=== PATIENT | female | born 1975 | race Caucasian/White ===

== ENCOUNTER 2017-06-12 22:12 | Emergency (ER) | payer MEDICAID ==
[~2017-06-12] VITALS: Ht 170.2 cm; Wt 53.1 kg
[~2017-06-12 22:12] MED LIST: IRON325 M2 PO; MEDROL 4MG. DOSE4 MG PO; ZITHROMAX Z PA250 MG PO
--- NOTE | 2017-06-12 22:44 | Emergency Room Report ---
History of Present Illness Time Seen by 220 Presenting Problem in Triage Pt arrived:Walked Presenting Problem:SOMEONE GRABBED FINGER AND TWISTED IT Onset of symptoms date/time:06/12/1704/21/2130 or onset unknown for: Treatment Prior to Arrival: SKEIN BANDER Provided by: Sepsis Risk Assessment: Temp: 97.8 B/P: 125/87 MAP: 99 Pulse: 81 Resp: 18 Recent fever? N Clinical Suspician of Infection? N Mental Status: 1 - Regular (Normal Baseline) Sepsis Risk:Low Sepsis Risk Have you (or family members/close friends) recently traveled outside the [place]? N If Yes, where/when: Have you had exposure to infectious disease within the past month? N TB? Other? Specify: Source patient, RN notes reviewed, family, old records Exam Limitations no limitations Comment acute injury lt fifth finger with twist injury Cardiac Chest Pain Chest pain indicative of cardiac No Timing/Duration this evening Severity moderate ALLERGIES Coded Allergies: No Known Allergies (01/30/17) Home Medications Active Scripts Methylprednisolone (Medrol Dose Marsha) 4 MG PO UD #1 MARSHA Prov: 01/30/17 Azithromycin (Zithromycin (Z-MARSHA) 250MG Tab) 250 MG PO DAILY #6 TAB Prov: 01/30/17 Reported Medications Ferrous Sulfate (IRON) 325 MG PO BID History Medical History General CAD? No Angina: No MT: No Hypertension? No Hyperlipidemia? No CHF? No DVT? No PE? No COPD? No Asthma? No Anemia? Yes GERD? No Gastric ulcers? No GI Bleed? No Hernia? No Thyroid Problems? No Hypothyroidism? No CVA? No Seizures? No Diabetes? No Renal Insuffiency? No End Stage Renal Disease? No UTI? No Stones? No BPH? No GB Disease: No Nephritic Syndrome? No Asplenia? No Hepatitis? No Sickle Cell Disease? No Arthritis? No Migraines? No Cataracts? No Glaucoma? No MRSA? No HIV? No TB? No Anxiety? No Depression? No Cancer? 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 Respiratory denies cough, denies shortness of breath, denies wheezing Cardiovascular denies chest pain, denies syncope Gastrointestinal denies abdominal pain, denies diarrhea, denies vomiting Genitourinary denies: dysuria, frequency, hesitancy, hematuria. Musculoskeletal see HPI, denies back pain, joint pain, joint swelling, denies neck pain Skin denies rash Psychiatric/Neurological denies headache, denies seizure Physical Exam Vital Signs Vital Signs Date Time Temp Pulse Resp B/P Pulse O2 O2 Flow FiO2 Ox Delivery Rate 06/122 97.8 81 18 125/87 98 - WBC >12,000 or <4,000 or 10% bands? 2 or more SIRS Criteria Met? B/P:125/87 MAP:99 Creatinine >2.0? UA output<0.5ml/kg/hr for 2 hrs? Platelet count >100,000? Lactate >2.0mmol/1? INR >1.2 or PTT > than 60 sec? Evidence of Organ Dysfunction? Provider documented clinical suspician of infection? N Sepsis Criteria Count: 0 Sepsis Risk: Low Sepsis Risk General Appearance no apparent distress Eye Exam - bilateral eye PERRL, bilateral eye EOMI Ear, Nose, Throat normal ENT inspection Neck supple Respiratory Status No: respiratory distress. Cardiovascular regular rate/rhythm Peripheral Pulses Pulses normal Yes Extremities swelling, tender pip jt lt fifth finger with sts and dec rom with cap refill ok Strength 4 Upper Ext (L), 4 Upper Ext (R), 4 Lower Ext (L), 4 Lower Ext (R) Neurologic alert, cotton agent II-XII nml as tested, no motor/sensory deficits Reflexes Reflexes normal No Mental status normal mood/affect Skin intact Medical Decision Making LABS/Meds/Orders Pt receiving controlled substance in ED? No Results/Orders Orders Procedure Date/time Status STABILIZE JOINT 06/12 2306 Active HAND-LT-3 VIEWS 06/12 2216 Active XRAY/CT/US XRAY/CT/US XRAY hand XR interpretation by reviewed by me Xray Results abnormal (avulsion fx ) Departure Departure Time of Disposition 2235 Disposition DC Home or Self Care(routine) Clinical Impression Primary Impression: Finger fracture, left Qualifiers: Encounter type: initial encounter Finger: little finger Fracture type: closed Phalanx: middle Fracture alignment: nondisplaced Qualified Code: S62.657A - Nondisplaced fracture of medial phalanx of left little finger, initial encounter for closed fracture Condition STABLE Referrals Quintin Bridges MD Patient Instructions DI for Finger Fracture Additional Instructions ice and wear splint and see ortho for follow up Discharge Counseling Counseled pt/family regarding diagnosis, test results, medications/RX, follow up needs ED Critical Care Critical Care No at [id number]
--- NOTE | 2017-06-12 22:44 | Emergency Room Report ---
History of Present Illness Time Seen by 220 Presenting Problem in Triage Pt arrived:Walked Presenting Problem:SOMEONE GRABBED FINGER AND TWISTED IT Onset of symptoms date/time:06/12/1704/21/2130 or onset unknown for: Treatment Prior to Arrival: [facility] Provided by: Sepsis Risk Assessment: Temp: 97.8 B/P: 125/87 MAP: 99 Pulse: 81 Resp: 18 Recent fever? N Clinical Suspician of Infection? N Mental Status: 1 - Regular (Normal Baseline) Sepsis Risk:Low Sepsis Risk Have you (or family members/close friends) recently traveled outside the [place]? N If Yes, where/when: Have you had exposure to infectious disease within the past month? N TB? Other? Specify: Source patient, RN notes reviewed, family, old records Exam Limitations no limitations Comment acute injury lt fifth finger with twist injury Cardiac Chest Pain Chest pain indicative of cardiac No Timing/Duration this evening Severity moderate ALLERGIES Coded Allergies: No Known Allergies (01/30/17) Home Medications Active Scripts Methylprednisolone (Medrol Dose Marsha) 4 MG PO UD #1 MARSHA Prov: 01/30/17 Azithromycin (Zithromycin (Z-MARSHA) 250MG Tab) 250 MG PO DAILY #6 TAB Prov: 01/30/17 Reported Medications Ferrous Sulfate (IRON) 325 MG PO BID History Medical History General CAD? No Angina: No IN: No Hypertension? No Hyperlipidemia? No CHF? No DVT? No PE? No COPD? No Asthma? No Anemia? Yes GERD? No Gastric ulcers? No GI Bleed? No Hernia? No Thyroid Problems? No Hypothyroidism? No CVA? No Seizures? No Diabetes? No Renal Insuffiency? No End Stage Renal Disease? No UTI? No Stones? No BPH? No GB Disease: No Nephritic Syndrome? No Asplenia? No Hepatitis? No Sickle Cell Disease? No Arthritis? No Migraines? No Cataracts? No Glaucoma? No MRSA? No HIV? No TB? No Anxiety? No Depression? No Cancer? 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 Respiratory denies cough, denies shortness of breath, denies wheezing Cardiovascular denies chest pain, denies syncope Gastrointestinal denies abdominal pain, denies diarrhea, denies vomiting Genitourinary denies: dysuria, frequency, hesitancy, hematuria. Musculoskeletal see HPI, denies back pain, joint pain, joint swelling, denies neck pain Skin denies rash Psychiatric/Neurological denies headache, denies seizure Physical Exam Vital Signs Vital Signs Date Time Temp Pulse Resp B/P Pulse O2 O2 Flow FiO2 Ox Delivery Rate 06/122 97.8 81 18 125/87 98 - WBC >12,000 or <4,000 or 10% bands? 2 or more SIRS Criteria Met? B/P:125/87 MAP:99 Creatinine >2.0? UA output<0.5ml/kg/hr for 2 hrs? Platelet count >100,000? Lactate >2.0mmol/1? INR >1.2 or PTT > than 60 sec? Evidence of Organ Dysfunction? Provider documented clinical suspician of infection? N Sepsis Criteria Count: 0 Sepsis Risk: Low Sepsis Risk General Appearance no apparent distress Eye Exam - bilateral eye PERRL, bilateral eye EOMI Ear, Nose, Throat normal ENT inspection Neck supple Respiratory Status No: respiratory distress. Cardiovascular regular rate/rhythm Peripheral Pulses Pulses normal Yes Extremities swelling, tender pip jt lt fifth finger with sts and dec rom with cap refill ok Strength 4 Upper Ext (L), 4 Upper Ext (R), 4 Lower Ext (L), 4 Lower Ext (R) Neurologic alert, spent grain dryer II-XII nml as tested, no motor/sensory deficits Reflexes Reflexes normal No Mental status normal mood/affect Skin intact Medical Decision Making LABS/Meds/Orders Pt receiving controlled substance in ED? No Results/Orders Orders Procedure Date/time Status STABILIZE JOINT 06/12 2306 Active HAND-LT-3 VIEWS 06/12 2216 Active XRAY/CT/US XRAY/CT/US XRAY hand XR interpretation by reviewed by me Xray Results abnormal (avulsion fx ) Departure Departure Time of Disposition 2235 Disposition DC Home or Self Care(routine) Clinical Impression Primary Impression: Finger fracture, left Qualifiers: Encounter type: initial encounter Finger: little finger Fracture type: closed Phalanx: middle Fracture alignment: nondisplaced Qualified Code: S62.657A - Nondisplaced fracture of medial phalanx of left little finger, initial encounter for closed fracture Condition STABLE Referrals Quintin Bridges MD Patient Instructions DI for Finger Fracture Additional Instructions ice and wear splint and see ortho for follow up Discharge Counseling Counseled pt/family regarding diagnosis, test results, medications/RX, follow up needs ED Critical Care Critical Care No at [id number]
[2017-06-12 22:56] VITALS: BP 125/87
--- NOTE | 2017-06-13 08:30 | RADIOLOGY REPORT PS360 ---
HAND-LT-3 VIEWS HISTORY: Pain following injury hand injury ORDERING PHYSICIAN: Lauren Bowman MD PATIENT AGE: 42 years COMPARISON: None FINDINGS: There is a faint lucency along the ulnar and proximal aspect of the middle phalanx of the fifth digit suspicious for a nondisplaced fracture. There are 2 calcific densities anterior to the PIP joint of the fifth digit and could be due to avulsion injury age indeterminate or small sesamoid bones. There is mild soft tissue swelling at the proximal aspect of the fifth finger. Artifact noted over the proximal phalanx of the thumb representing a ring. No other significant anomalies evident. IMPRESSION: 1. Suspect nondisplaced fracture of the middle phalanx of the fifth finger
--- OUTSIDE RECORDS SUMMARY | 2017-06-17 23:38 | External Medical Summary Rpt | CCD ---
Author Author , POON[facility] Organization [facility] Address Unknown Phone Care Team Providers Care Informatics Manager Name Role Phone [facility], Unavailable Unavailable [facility] LUIS SMITH Unavailable Unavailable JW ESCALERA Unavailable Unavailable IBARRA, IBARRA Unavailable Unavailable MARCIA MARCIA Unavailable Unavailable COPE, COPE Unavailable Unavailable [facility] Unavailable Unavailable INC, [facility], Unavailable Unavailable [facility] Unavailable Unavailable [facility], [facility] [place] Unavailable Unavailable [facility] [place] [place] Unavailable Unavailable 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 L538 OTHER 02-22-2017 [facility] SPECIFIED DERMATOLOGY ERYTHEMATOU S CONDITIONS L578 OTH SKN 02-22-2017 [facility] CHANGES D/T DERMATOLOGY CHRN EXPS TO NONIONIZING RAD L821 OTHER 02-22-2017 [facility] SEBORRHEIC DERMATOLOGY KERATOSIS R208 OTHER 02-22-2017 [facility] DISTURBANCE DERMATOLOGY S OF SKIN SENSATION R58 HEMORRHAGE 02-22-2017 [facility] NOT DERMATOLOGY ELSEWHERE CLASSIFIED J209 ACUTE 01-30-2017 [facility] UNSPECIFIED INC R002 PALPITATION 01-25-2017 [facility] INC R011 CARDIAC 01-25-2017 [facility] UNSPECIFIED INC R609 EDEMA 01-25-2017 [facility] INC D229 MELANOCYTIC 01-20-2017 [facility] UNSPECIFIED INTERNAL MED J069 ACUTE UPPER 01-20-2017 [facility] INFECTION MED UNSPECIFIED L723 SEBACEOUS 01-20-2017 [facility] [place] Z0189 ENCOUNTER 09-02-2016 [facility] 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 5 00 NH Ac IT 76 -2 -2 00 00 L- ti HR 23 8- 3- 0 07 MA ve OM 06 20 20 49 RT YC 00 17 17 03 IN 1 68 PH AR 25 MA 0 CY MG #5 TA 91 BL ET FL 60 05 06 16 30 00 NH Ac UT 43 -1 -1 .0 00 L- ti IC 20 8- 6- 00 07 MA ve 26 20 20 48 RT ON 41 17 17 86 E 5 81 PH CO AR OP MA CY 50 #5 MC 91 G SP RA Y CE 16 05 06 30 30 00 NH Ac TI 57 -1 -1 .0 00 L- ti RI 10 8- 6- 00 08 MA ve ZI 40 20 20 83 RT NE 25 17 17 95 0 15 PH HC AR L MA 10 CY MG #5 91 TA BL ET FL 00 05 05 30 30 00 NH Ac UO 09 -0 -2 .0 00 L- ti XE 37 1- 6- 00 07 MA ve TI 19 20 20 48 RT NE 85 17 17 55 6 23 PH HC AR L MA 40 CY MG #5 91 CA PS UL E BU 00 03 04 4. 3 00 GE Ac CO 05 -2 -2 00 00 OR ti EN 40 4- 8- 0 04 GE ve OR 18 20 20 01 TO PH 91 17 17 77 WN IN 3 16 -N AP AL OT OX HE ON CA RY 8- 2 MG SL BU 00 03 04 17 11 00 GE Ac CO 05 -1 -0 .0 00 OR ti EN 40 3- 7- 00 04 GE ve OR 18 20 20 01 TO PH 91 17 17 73 WN IN 3 86 -N AP AL OT OX HE ON CA RY 8- 2 MG SL FL 65 03 04 30 30 00 GE Ac UO 86 -1 -0 .0 00 OR ti XE 20 3- 7- 00 06 GE ve TI 19 20 20 03 TO NE 30 17 17 90 WN 1 94 HC AP L OT 20 HE CA MG RY CA PS UL E BU 00 03 03 15 10 00 GE Ac CO 05 -0 -3 .0 00 OR ti EN 40 3- 1- 00 04 GE ve OR 18 20 20 01 TO PH 91 17 17 71 WN IN 3 58 -N AP AL OT OX HE ON CA RY 8- 2 MG SL BU 00 02 03 6. 4 00 GE Ac CO 05 -2 -2 00 00 OR ti EN 40 7- 4- 0 04 GE ve OR 18 20 20 01 TO PH 91 17 17 70 WN IN 3 04 -N AP AL OT OX HE ON CA RY 8- 2 MG SL BU 00 02 03 5. 3 00 GE Ac CO 05 -1 -1 00 00 OR ti EN 40 0- 0- 0 04 GE ve OR 18 20 20 01 TO PH 91 17 17 65 WN IN 3 43 -N AP AL OT OX HE ON CA RY 8- 2 MG SL BU 00 01 02 5. 3 00 GE Ac CO 05 -2 -2 00 00 OR ti EN 40 7- 4- 0 04 GE ve OR 18 20 20 01 TO PH 91 17 17 61 WN IN 3 07 -N AP AL OT OX HE ON CA RY 8- 2 MG SL BU 00 01 02 5. 3 00 GE Ac CO 05 -1 -1 00 00 OR ti EN 40 3- 0- 0 04 GE ve OR 18 20 20 01 TO PH 91 17 17 57 WN IN 3 25 -N AP AL OT OX HE ON CA RY 8- 2 MG SL BU 00 01 02 6. 4 00 GE Ac CO 05 -1 -0 00 00 OR ti EN 40 1- 3- 0 04 GE ve OR 18 20 20 01 TO PH 91 17 17 55 WN IN 3 55 -N AP AL OT OX HE ON CA RY 8- 2 MG SL BU 00 12 01 4. 3 00 GE Ac CO 05 -3 -2 00 00 OR ti EN 40 0- 7- 0 04 GE ve OR 18 20 20 01 TO PH 91 16 17 52 WN IN 3 85 -N AP AL OT OX HE ON CA RY 8- 2 MG SL BU 00 12 01 21 14 00 GE Ac CO 05 -1 -1 .0 00 OR ti EN 40 5- 3- 00 04 GE ve OR 18 20 20 01 TO PH 91 16 17 48 WN IN 3 39 -N AP AL OT OX HE ON CA RY 8- 2 MG SL BU 00 12 01 9. 6 00 GE Ac CO 05 -1 -0 00 00 OR ti EN 40 0- 9- 0 04 GE ve OR 18 20 20 01 TO PH 91 16 17 46 WN IN 3 86 -N AP AL OT OX HE ON CA RY 8- 2 MG SL ME 00 12 01 70 7 00 HO Ac TR 78 -0 -0 .0 00 ME ti ON 17 8- 9- 00 06 TO ve ID 07 20 20 07 WN AZ 78 16 17 71 OL 7 60 PH E AR VA MARY GI CY NA L OF 0. 75 CY % NT GL HI AN A NI 68 12 01 10 5 00 HO Ac TR 00 -0 -0 .0 00 ME ti OF 10 8- 9- 00 06 TO ve UR 00 20 20 07 WN AN 10 16 17 71 TO 0 59 PH IN AR MARY MO CY NO -M OF CR CY 10 NT 0 HI MG AN A Procedures Procedure DOS Code Location Performer Comment SHAVING 71553 [facility] SKIN 7 DERMATOLO LESION 1 GY TRUNK/ARM /LEG DIAM 0.5CM/< IMHISTOCH 19424 [facility] JW EM/CYTCHM 7 DERMATOLO 1ST [place] [address] [facility] JW SURG 7 DERMATOLO PATHOLOGY GY GROSS&LUBA ROSCOPIC EXAM ECHO 01802 [facility] R-T 7 [facility] 2D INC INC W/WOM-MOD E COMPL SPEC&COLR D XTRNL ECG 82235 [facility] & 48 HR 7 VALLEY RECORD INTERNAL SCAN STOR MED W/R&I DRUG TEST G0481 [facility] [place], ID INC. INC. METH P DAY 8-14 DRUG CL LIPID 08730 [facility] PANEL 6 [facility] INC INC SCREENING G0202 [place] M[facility]IA 6 MEDICAL MAMMOGRAP IMAGING HY NINFA ASS INCL CAD WHEN PERFORMD COMPREHEN 68276 [facility] SIVE 6 [facility] METABOLIC INC INC PANEL COLLECTIO 02394 [facility] N VENOUS 6 [facility] BLOOD INC INC VENIPUNCT URE COMPUTER- 94301 [place] MARCIA AIDED 6 MEDICAL DETECTION IMAGING ASS SCREENING MAMMOGRAP HY CYTP C/V 36091 [facility], PICKLES[facility] AUTO THIN 6 LLC ER JR LYR PREPJ SCR MNL RESCR PHYS URNLS DIP 84845 [facility] STACEY 6 PHYSICIAN STICK/TAB S GROUP LET RGNT NON-AUTO W/O MICRSCP SUSCEPTIB 22219 [facility] LTY STDY 6 [facility] ANTIMICRB INC INC IAL MICRO/AGA R DILUTJ SMR PRIM 86311 [facility] STACEY SRC WET 6 PHYSICIAN [place] GROUP NFCT AGT CULTURE 62493 [facility] BCT 6 [facility] ISOL&PRSM INC INC PTV ID ISOLATE EA URINE CULTURE 88992 [facility] BACTERIAL 6 [facility] INC INC QUANTTATI VE COLONY COUNT URINE Encounters Encounter Start End Date Code Location Performer Type Date OFFICE 42848 [facility] CONSULTAT 7 7 DERMATOLO ION GY NEW/ESTAB PATIENT 40 MIN [facility] Vill[facility] 7 [facility]IEN [facility] T [facility] T VISIT 5 INC MINUTES [facility]OSPITAL [facility] - [facility] 7 [facility] OUTPATIEN INC T OFFICE 61408 [facility] 7 7 [facility] 30 INTERNAL MINUTES [facility] - 6 6 [facility] OUTPATIEN [facility] - 6 6 [facility] OUTPATIEN [facility] 480[address] [facility]Y [facility] PHYSICIAN E S GROUP MEDICINE NEW PATIENT 40-64YRS
--- OUTSIDE RECORDS SUMMARY | 2017-06-17 23:38 | External Medical Summary Rpt | CCD ---
Author Author , POONAM Organization POONAM Address Unknown Phone Care Team Providers Care Skinner Pelts Name Role Phone [facility], Unavailable Unavailable [facility] LUIS SMITH Unavailable Unavailable JW ESCALERA Unavailable Unavailable IBARRA, IBARRA Unavailable Unavailable MARCIA MARCIA Unavailable Unavailable COPE, COPE Unavailable Unavailable [facility] Unavailable Unavailable INC, [facility], Unavailable Unavailable [facility] Unavailable Unavailable IMAGING ASS, [facility] [place] Unavailable Unavailable [facility] [place] [place] Unavailable Unavailable [facility] [employer] [facility] Unavailable Unavailable INTERNAL MED, [facility] INTERNAL MED RADHA MISHRA, Unavailable Unavailable [...] MED [id number] ENCOUNTER 09-02-2016 [facility] OTHER [employer] 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 5 00 ND Ac IT 76 -2 -2 00 00 L- ti HR 23 8- 3- 0 07 MA ve OM 06 20 20 49 RT YC 00 17 17 03 IN 1 68 PH AR 25 MA 0 CY MG #5 TA 91 BL ET FL 60 05 06 16 30 00 ND Ac UT 43 -1 -1 .0 00 L- ti IC 20 8- 6- 00 07 MA ve 26 20 20 48 RT ON 41 17 17 86 E 5 81 PH OK AR OP MA CY 50 #5 MC 91 G SP RA Y CE 16 05 06 30 30 00 ND Ac TI 57 -1 -1 .0 00 L- ti RI 10 8- 6- 00 08 MA ve ZI 40 20 20 83 RT NE 25 17 17 95 0 15 PH HC AR L MA 10 CY MG #5 91 TA BL ET FL 00 05 05 30 30 00 ND Ac UO 09 -0 -2 .0 00 L- ti XE 37 1- 6- 00 07 MA ve TI 19 20 20 48 RT NE 85 17 17 55 6 23 PH HC AR L MA 40 CY MG #5 91 CA PS UL E BU 00 03 04 4. 3 00 GE Ac OK 05 -2 -2 00 00 OR ti EN 40 4- 8- 0 04 GE ve OR 18 20 20 01 TO PH 91 17 17 77 WN IN 3 16 -N AP AL OT OX HE ON CA RY 8- 2 MG SL BU 00 03 04 17 11 00 GE Ac OK 05 -1 -0 .0 00 OR ti [...] 03 03 15 10 00 GE Ac OK 05 -0 -3 .0 00 OR ti EN 40 3- 1- 00 04 GE ve OR 18 20 20 01 TO PH 91 17 17 71 WN IN 3 58 -N AP AL OT OX HE ON CA RY 8- 2 MG SL BU 00 02 03 6. 4 00 GE Ac OK 05 -2 -2 00 00 OR ti EN 40 7- 4- 0 04 GE ve OR 18 20 20 01 TO PH 91 17 17 70 WN IN 3 04 -N AP AL OT OX HE ON CA RY 8- 2 MG SL BU 00 02 03 5. 3 00 GE Ac OK 05 -1 -1 00 00 OR ti EN 40 0- 0- 0 04 GE ve OR 18 20 20 01 TO PH 91 17 17 65 WN IN 3 43 -N AP AL OT OX HE ON CA RY 8- 2 MG SL BU 00 01 02 5. 3 00 GE Ac OK 05 -2 -2 00 00 OR ti EN 40 7- 4- 0 04 GE ve OR 18 20 20 01 TO PH 91 17 17 61 WN IN 3 07 -N AP AL OT OX HE ON CA RY 8- 2 MG SL BU 00 01 02 5. 3 00 GE Ac OK 05 -1 -1 00 00 OR ti EN 40 3- 0- 0 04 GE ve OR 18 20 20 01 TO PH 91 17 17 57 WN IN 3 25 -N AP AL OT OX HE ON CA RY 8- 2 MG SL BU 00 01 02 6. 4 00 GE Ac OK 05 -1 -0 00 00 OR ti EN 40 1- 3- 0 04 GE ve OR 18 20 20 01 TO PH 91 17 17 55 WN IN 3 55 -N AP AL OT OX HE ON CA RY 8- 2 MG SL BU 00 12 01 4. 3 00 GE Ac OK 05 -3 -2 00 00 OR ti EN 40 0- 7- 0 04 GE ve OR 18 20 20 01 TO PH 91 16 17 52 WN IN 3 85 -N AP AL OT OX HE ON CA RY 8- 2 MG SL BU 00 12 01 21 14 00 GE Ac OK 05 -1 -1 .0 00 OR ti EN 40 5- 3- 00 04 GE ve OR 18 20 20 01 TO PH 91 16 17 48 WN IN 3 39 -N AP AL OT OX HE ON CA RY 8- 2 MG SL BU 00 12 01 9. 6 00 GE Ac OK 05 -1 -0 00 00 OR ti [...] Procedure DOS Code Location Performer Comment SHAVING 80779 [facility] SMITH SKIN 7 DERMATOLO LESION 1 GY TRUNK/ARM /LEG DIAM 0.5CM/< IMHISTOCH 39293 ADVANCED JW EM/CYTCHM 7 DERMATOLO 1ST [place] [address] ADVANCED JW SURG 7 DERMATOLO PATHOLOGY GY GROSS&LUBA ROSCOPIC EXAM ECHO 02204 [facility] TTHRC R-T 7 [facility] 2D INC INC W/WOM-MOD E COMPL SPEC&COLR D XTRNL ECG 00824 [place] [facility]E & 48 HR 7 VALLEY RECORD INTERNAL SCAN STOR MED W/R&I DRUG TEST G0481 [facility] 6 [place], [place], ID INC. INC. METH P DAY 8-14 DRUG CL LIPID 93241 [facility] PANEL 6 [facility] INC INC SCREENING G0202 [place] MARCIA 6 MEDICAL MAMMOGRAP IMAGING HY NINFA ASS INCL CAD WHEN PERFORMD COMPREHEN 75547 [facility] SIVE 6 [facility] H[facility] METABOLIC INC INC PANEL COLLECTIO 05363 [facility] N VENOUS 6 [facility] BLOOD INC INC VENIPUNCT URE COMPUTER- 81695 [place] MARCIA AIDED 6 MEDICAL DETECTION IMAGING ASS SCREENING MAMMOGRAP HY CYTP C/V 17648 [facility] LABS, PICKLESIM AUTO THIN 6 LLC ER JR LYR PREPJ SCR MNL RESCR PHYS URNLS DIP 89178 [facility] STACEY 6 PHYSICIAN STICK/TAB S GROUP LET RGNT NON-AUTO W/O MICRSCP SUSCEPTIB 13479 [facility] LTY STDY 6 [facility] ANTIMICRB INC INC IAL MICRO/AGA R DILUTJ SMR PRIM 32284 [facility] STACEY SRC WET 6 PH[facility] [place] [facility] NFCT AGT CULTURE 33231 [facility] BCT 6 [facility] ISOL&PRSM INC INC PTV ID ISOLATE EA URINE CULTURE 40434 [facility] BACTERIAL 6 [facility] INC INC QUANTTATI VE COLONY COUNT URINE Encounters Encounter Start End Date Code Location Performer Type Date OFFICE 38703 [facility] CONSULTAT 7 7 DERMATOLO ION GY NEW/ESTAB PATIENT 40 [facility] Villarreal 7 [facility] OUTPATIEN INC T OFFICE 77579 [facility] T [facility]ISIT 5 INC MINUTES [facility]OSP[facility] - [place] 7 [facility] OUTPATIEN INC T OFFICE 12229 [facility] 7 7 [facility] 30 INTERNAL MINUTES [facility] - 6 6 [facility] OUTPATIEN [facility] - 6 6 [facility] OUTPATIEN [facility] 79726 [facility] PHYSICIAN E S GROUP MEDICINE NEW PATIENT 40-64YRS
--- OUTSIDE RECORDS SUMMARY | 2017-06-17 23:39 | External Medical Summary Rpt | CCD ---
Author Author , POONAM LEVIN Address Unknown Phone [email or web address] Care Team Providers Care Director Targeted Marketing Name Role Phone [facility], Unavailable Unavailable [facility] LUIS SMITH Unavailable Unavailable JW ESCALERA Unavailable Unavailable STACEY IBARRA Unavailable Unavailable COPE, COPE Unavailable Unavailable [facility] Unavailable Unavailable INC, [facility], Unavailable Unavailable [facility] Unavailable Unavailable IMAGING ASS, [facility]AGING [facility] Unavailable Unavailable [facility] [place] [place] Unavailable Unavailable [facility] [place] Unavailable Unavailable INTERNAL MED, [facility] INTERNAL MED RADHA MISHRA, Unavailable Unavailable RADHA [...] MED Z0189 ENCOUNTER 09-02-2016 [facility] [place] SPECIFIED SPECIAL EXAMINATION S [id number] ENCOUNTER 08-27-2016 [facility] RN BIRTHING EXAM [facility] GENERAL RTN INC W/O ABNORMAL FIND Z1231 ENCOUNTER 08-27-2016 [facility] MEDICAL MAMMO MALIG IMAGING ASS NEOPLASM BREAST N390 URINARY 08-12-2016 [facility] TRACT PHYSICIANS INFECTION GROUP SITE NOT SPECIFIED N760 ACUTE 08-12-2016 [facility] VAGINITIS PHYSICIANS GROUP [id number] ENCOUNTER 08-12-2016 [facility] RN BIRTHING EXAM PHYSICIANS GENERAL RTN GROUP W/ABNORMAL FIND Medications Na ND Rx Da Fi Fi Am Da Di Ph RX Ph St me C No te ll ll ou ys ag ar # ys at rm s nt no ma ic us Or Da si cy ia de te s n re d AZ 59 05 06 6. 5 00 CO Ac IT 76 -2 -2 00 00 L- ti HR 23 8- 3- 0 07 MA ve OM 06 20 20 49 RT YC 00 17 17 03 IN 1 68 PH AR 25 MA 0 CY MG #5 TA 91 BL ET ME 59 05 06 21 6 00 CO Ac TH 74 -2 -2 .0 00 L- ti YL 60 8- 3- 00 07 MA ve CA 00 20 20 49 RT ED 10 17 17 03 NI 3 69 PH SO AR LO MA NE CY 4 #5 MG 91 DO SE PK CE 16 05 06 30 30 00 CO Ac TI 57 -1 -1 .0 00 L- ti RI 10 8- 6- 00 08 MA ve ZI 40 20 20 83 RT NE 25 17 17 95 0 15 PH HC AR L MA 10 CY MG #5 91 TA BL ET FL 60 05 06 16 30 00 CO Ac UT 43 -1 -1 .0 00 L- ti IC 20 8- 6- 00 07 MA ve 26 20 20 48 RT ON 41 17 17 86 E 5 81 PH CA AR OP MA CY 50 #5 MC 91 G SP RA Y FL 00 05 05 30 30 00 CO Ac UO 09 -0 -2 .0 00 L- ti XE 37 1- 6- 00 07 MA ve TI 19 20 20 48 RT NE 85 17 17 55 6 23 PH HC AR L MA 40 CY MG #5 91 CA PS UL E BU 00 03 04 4. 3 00 GE Ac CA 05 -2 -2 00 00 OR ti EN 40 4- 8- 0 04 GE ve OR 18 20 20 01 TO PH 91 17 17 77 WN IN 3 16 -N AP AL OT OX HE ON CA RY 8- 2 MG SL BU 00 03 04 17 11 00 GE Ac CA 05 -1 -0 .0 00 OR ti [...] 03 03 15 10 00 GE Ac CA 05 -0 -3 .0 00 OR ti EN 40 3- 1- 00 04 GE ve OR 18 20 20 01 TO PH 91 17 17 71 WN IN 3 58 -N AP AL OT OX HE ON CA RY 8- 2 MG SL BU 00 02 03 6. 4 00 GE Ac CA 05 -2 -2 00 00 OR ti EN 40 7- 4- 0 04 GE ve OR 18 20 20 01 TO PH 91 17 17 70 WN IN 3 04 -N AP AL OT OX HE ON CA RY 8- 2 MG SL BU 00 02 03 5. 3 00 GE Ac CA 05 -1 -1 00 00 OR ti EN 40 0- 0- 0 04 GE ve OR 18 20 20 01 TO PH 91 17 17 65 WN IN 3 43 -N AP AL OT OX HE ON CA RY 8- 2 MG SL BU 00 01 02 5. 3 00 GE Ac CA 05 -2 -2 00 00 OR ti EN 40 7- 4- 0 04 GE ve OR 18 20 20 01 TO PH 91 17 17 61 WN IN 3 07 -N AP AL OT OX HE ON CA RY 8- 2 MG SL BU 00 01 02 5. 3 00 GE Ac CA 05 -1 -1 00 00 OR ti EN 40 3- 0- 0 04 GE ve OR 18 20 20 01 TO PH 91 17 17 57 WN IN 3 25 -N AP AL OT OX HE ON CA RY 8- 2 MG SL BU 00 01 02 6. 4 00 GE Ac CA 05 -1 -0 00 00 OR ti EN 40 1- 3- 0 04 GE ve OR 18 20 20 01 TO PH 91 17 17 55 WN IN 3 55 -N AP AL OT OX HE ON CA RY 8- 2 MG SL BU 00 12 01 4. 3 00 GE Ac CA 05 -3 -2 00 00 OR ti EN 40 0- 7- 0 04 GE ve OR 18 20 20 01 TO PH 91 16 17 52 WN IN 3 85 -N AP AL OT OX HE ON CA RY 8- 2 MG SL BU 00 12 01 21 14 00 GE Ac CA 05 -1 -1 .0 00 OR ti EN 40 5- 3- 00 04 GE ve OR 18 20 20 01 TO PH 91 16 17 48 WN IN 3 39 -N AP AL OT OX HE ON CA RY 8- 2 MG SL NI 68 12 01 10 5 00 HO Ac TR 00 -0 -0 .0 00 ME ti OF 10 8- 9 06 TO ve UR 00 20 20 07 WN AN 10 16 17 71 TO 0 59 PH IN AR MA MO CY NO -M OF CR CY 10 NT 0 HI MG AN A ME 00 12 01 70 7 00 HO Ac TR 78 -0 -0 .0 00 ME ti ON 17 8- 06 TO ve ID 07 20 20 07 WN AZ 78 16 17 71 OL 7 60 PH E AR VA MA GI CY NA L OF 0. 75 CY % NT GL HI AN A BU 00 12 01 9. 6 00 GE Ac CA 05 -1 -0 00 00 OR ti EN 40 0- 9- 0 04 GE ve OR 18 20 20 01 TO PH 91 16 17 46 WN IN 3 86 -N AP AL OT OX HE ON CA RY 8- 2 MG SL Procedures Procedure DOS Code Location Performer Comment SHAVING 24435 ADVANCED SMITH SKIN 7 DERMATOLO LESION 1 GY TRUNK/ARM /LEG DIAM 0.5CM/< [place] [address] ADVANCED WJ SURG 7 DERMATOLO PATHOLOGY GY GROSS&LUBA ROSCOPIC EXAM IMHISTOCH 78423 ADVANCED JW EM/CYTCHM 7 DERMATOLO 1ST GY ANTIBODY STAIN PROCEDURE ECHO 75965 [facility] TTHRC R-T 7 [facility] 2D INC INC W/WOM-MOD E COMPL SPEC&COLR D XTRNL ECG 74765 [place] [facility] & 48 HR 7 VALLEY RECORD INTERNAL SCAN STOR MED W/R&I DRUG TEST G0481 [facility] 6 [place], [place], DR ID INC. INC. METH P DAY 8-14 DRUG CL LIPID 85445 [facility] PANEL 6 [facility] INC INC SCREENING G0202 [facility] 6 [facility] MAMMOGRAP INC INC HY NINFA INCL CAD WHEN PERFORMD COMPUTER- 16508 [facility] AIDED 6 [facility] DETECTION INC INC SCREENING MAMMOGRAP HY COLLECTIO 63476 [facility] N VENOUS 6 [facility] BLOOD INC INC VENIPUNCT URE COMPREHEN 97846 [facility] SIVE 6 [facility] METABOLIC INC INC PANEL URNLS DIP 20497 [facility] STACEY 6 PHYSICIAN STICK/TAB S GROUP LET RGNT NON-AUTO W/O MICRSCP SUSCEPTIB 21916 [facility] LTY STDY 6 [facility] ANTIMICRB INC INC IAL MICRO/AGA R DILUTJ CULTURE 48948 [facility] BACTERIAL 6 [facility] INC INC QUANTTATI VE COLONY COUNT URINE CULTURE 09999 [facility] BCT 6 [facility] ISOL&PRSM INC INC PTV ID ISOLATE EA URINE SMR PRIM [id number] [facility] STACEY SRC WET 6 PHYS[facility]IAN [place] [facility] NFCT AGT CYTP C/V 92298 [facility], PICKLESIM AUTO THIN 6 LLC ER JR LYR PREPJ SCR MNL RESCR PHYS Encounters Encounter Start End Date Code Location Performer Type Date OFFICE 32046 [facility] SM[facility] CONSULTAT 7 7 DERMATOLO ION GY NEW/ESTAB PATIENT 40 [facility] - 7 7 [facility] OUTPATIEN INC T OFFICE 37569 [facility] 7 7 [facility] T VISIT 5 INC MINUTES [facility]OSP[facility] - 7 7 [facility] OUTPATIEN INC T OFFICE 31378 [facility] 7 7 VALLEY T NEW 30 INTERNAL MINUTES [facility] - 6 6 [facility] - 6 6 [facility] 97676 [facility] STACEY [facility] 6 6 PHYSICIAN E S GROUP MEDICINE NEW PATIENT 40-64YRS
--- OUTSIDE RECORDS SUMMARY | 2017-06-17 23:39 | External Medical Summary Rpt | CCD ---
Demographics Preferred Language Cape Verdean Marital Status Unknown Samaritan Affiliation Unknown Race Unknown Ethnic Group Unknown Author Author , POONAM LEVIN Address Unknown Phone Immunization No patient found.
--- OUTSIDE RECORDS SUMMARY | 2017-06-17 23:39 | External Medical Summary Rpt | CCD ---
Author Author , POONAM LEVIN Address Unknown Phone [email or web address] Care Team Providers Care Bellows Tester Name Role Phone [facility], Unavailable Unavailable [facility] LUIS SMITH Unavailable Unavailable JW ESCALERA Unavailable Unavailable STACEY IBARRA Unavailable Unavailable COPE, COPE Unavailable Unavailable [facility] Unavailable Unavailable INC, [facility], Unavailable Unavailable [facility] Unavailable Unavailable IMAGING ASS, [facility] [employer] Unavailable Unavailable [facility] [place] [employer] [employer] Unavailable Unavailable [facility] [employer] [facility] Unavailable Unavailable INTERNAL MED, [facility] INTERNAL MED RADHA MISHRA, Unavailable Unavailable [...] MED Z0189 ENCOUNTER 09-02-2016 [facility] OTHER [employer] 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 3 00 GE Ac IN 05 -2 -2 00 00 OR ti EN 40 4- 8- 0 04 GE ve OR 18 20 20 01 TO PH 91 17 17 77 WN IN 3 16 -N AP AL OT OX HE ON CA RY 8- 2 MG SL BU 00 03 04 17 11 00 GE Ac IN 05 -1 -0 .0 00 OR ti [...] 03 03 15 10 00 GE Ac IN 05 -0 -3 .0 00 OR ti EN 40 3- 1- 00 04 GE ve OR 18 20 20 01 TO PH 91 17 17 71 WN IN 3 58 -N AP AL OT OX HE ON CA RY 8- 2 MG SL BU 00 02 03 6. 4 00 GE Ac IN 05 -2 -2 00 00 OR ti EN 40 7- 4- 0 04 GE ve OR 18 20 20 01 TO PH 91 17 17 70 WN IN 3 04 -N AP AL OT OX HE ON CA RY 8- 2 MG SL BU 00 02 03 5. 3 00 GE Ac IN 05 -1 -1 00 00 OR ti EN 40 0- 0- 0 04 GE ve OR 18 20 20 01 TO PH 91 17 17 65 WN IN 3 43 -N AP AL OT OX HE ON CA RY 8- 2 MG SL BU 00 01 02 5. 3 00 GE Ac IN 05 -2 -2 00 00 OR ti EN 40 7- 4- 0 04 GE ve OR 18 20 20 01 TO PH 91 17 17 61 WN IN 3 07 -N AP AL OT OX HE ON CA RY 8- 2 MG SL BU 00 01 02 5. 3 00 GE Ac IN 05 -1 -1 00 00 OR ti EN 40 3- 0- 0 04 GE ve OR 18 20 20 01 TO PH 91 17 17 57 WN IN 3 25 -N AP AL OT OX HE ON CA RY 8- 2 MG SL BU 00 01 02 6. 4 00 GE Ac IN 05 -1 -0 00 00 OR ti EN 40 1- 3- 0 04 GE ve OR 18 20 20 01 TO PH 91 17 17 55 WN IN 3 55 -N AP AL OT OX HE ON CA RY 8- 2 MG SL BU 00 12 01 4. 3 00 GE Ac IN 05 -3 -2 00 00 OR ti EN 40 0- 7- 0 04 GE ve OR 18 20 20 01 TO PH 91 16 17 52 WN IN 3 85 -N AP AL OT OX HE ON CA RY 8- 2 MG SL BU 00 12 01 21 14 00 GE Ac IN 05 -1 -1 .0 00 OR ti [...] 12 01 9. 6 00 GE Ac IN 05 -1 -0 00 00 OR ti EN 40 0- 9- 0 04 GE ve OR 18 20 20 01 TO PH 91 16 17 46 WN IN 3 86 -N AP AL OT OX HE ON CA RY 8- 2 MG SL Procedures Procedure DOS Code Location Performer Comment SHAVING 86739 ADVANCED SMITH SKIN 7 DERMATOLO LESION 1 GY TRUNK/ARM /LEG DIAM 0.5CM/< [place] [address] ADVANCED JW SURG 7 DERMATOLO PATHOLOGY GY GROSS&LUBA ROSCOPIC EXAM IMHISTOCH 01243 ADVANCED JW EM/CYTCHM 7 DERMATOLO 1ST GY ANTIBODY STAIN PROCEDURE ECHO 70949 [facility] TTHRC R-T 7 [facility] 2D INC INC W/WOM-MOD E COMPL SPEC&COLR D XTRNL ECG 74856 [facility] & 48 HR 7 VALLEY RECORD INTERNAL SCAN STOR MED W/R&I DRUG TEST G0481 [facility] 6 [place], [place], DR ID INC. INC. METH P DAY 8-14 DRUG CL LIPID 95772 [facility] PANEL 6 [facility] INC INC SCREENING G0202 [facility] 6 [facility] MAMMOGRAP INC INC HY NINFA INCL CAD WHEN PERFORMD COMPUTER- 73933 [facility] AIDED 6 [facility] DETECTION INC INC SCREENING MAMMOGRAP HY COLLECTIO 30454 [facility] S[facility] N VENOUS 6 [facility] BLOOD INC INC VENIPUNCT URE COMPREHEN 71638 [facility] SIVE 6 [facility] METABOLIC INC INC PANEL URNLS DIP 21349 [facility] STACEY 6 PHYSICIAN STICK/TAB S GROUP LET RGNT NON-AUTO W/O MICRSCP SUSCEPTIB 88173 [facility] LTY STDY 6 [facility] ANTIMICRB INC INC IAL MICRO/AGA R DILUTJ CULTURE 06013 [facility] BACTERIAL 6 [facility] INC INC QUANTTATI VE COLONY COUNT URINE CULTURE 39513 [facility] BCT 6 [facility] ISOL&PRSM INC INC PTV ID ISOLATE EA URINE SMR PRIM 15170 [facility] STACEY SRC WET 6 PHYS[facility]IAN [place] [facility] NFCT AGT CYTP C/V 08230 [facility], PICKLESIM AUTO THIN 6 LLC ER JR LYR PREPJ SCR MNL RESCR PHYS Encounters Encounter Start End Date Code Location Performer Type Date OFFICE 21935 [facility] SMITH CONSULTAT 7 7 DERMATOLO ION GY NEW/ESTAB PATIENT 40 [facility] - [facility] 7 [facility] OUTPATIEN INC T OFFICE 06934 [facility] 7 7 [facility] T VISIT 5 INC MINUTES [facility]OS[facility] - 7 7 [facility] OUTPATIEN INC T OFFICE 34197 [facility] 7 7 VALLEY T NEW 30 INTERNAL MINUTES [facility] - 6 6 [facility] OUTPATIEN [facility] - 6 6 [facility] OUTPATIEN [facility] INITIAL 31889 [facility] STACEY MOSHER 6 6 PHYSICIAN E S GROUP MEDICINE NEW PATIENT 40-64YRS
--- OUTSIDE RECORDS SUMMARY | 2017-06-17 23:39 | External Medical Summary Rpt | CCD ---
Demographics Preferred Language Panamanian Marital Status Unknown Latter Day Affiliation Unknown Race Unknown Ethnic Group Unknown Author Author , POONAM LEVIN Address Unknown Phone Immunization No patient found.
--- OUTSIDE RECORDS SUMMARY | 2017-06-17 23:40 | External Medical Summary Rpt ---
Author Author ESTEPHANIANELL Deutsch, [employer] Organization [employer] Address Unknown Phone Unavailable Results Iron and TIBC Observa Value Referen Units Interpr Notes Date tion ce etation Range Iron 250 - 450 ug/dL No No January 20 binding informati informati 2016 1:02 capacity on in on in PM [Mass/vol source source ume] in data data Serum or Plasma Iron 131 - 425 ug/dL No No January 20 binding informati informati 2016 1:02 capacity. on in on in PM unsaturat source source ed data data [Mass/vol ume] in Serum or Plasma Iron 27 - 159 ug/dL No No January 20 [Mass/vol informati informati 2016 1:02 ume] in on in on in PM Serum or source source Plasma data data Iron 15 - 55 % Low Performed January 20 saturatio at: CB 2017 1:02 n [Mass] - [facility] PM in Serum or Plasma [address] [id number] Web Press Operator: Robi Tapia PhD, Phone: [phone] Natriutietic peptide B [Mass/volume] in Serum or Plasma Observa Value Referen Units Interpr Notes tion ce etation Range Natriutie 0 - 100 pg/mL Normal No January 20 tic informati 2016 1:02 peptide B on in PM source [Mass/vol data ume] in Serum or Plasma Comprehensive metabolic 2000 panel in Serum or Plasma Observa Value Referen Units Interpr Notes Date tion ce etation Range Albumin/G 1.1 - 1.8 No Low No January 20 lobulin informati informati 2016 1:02 [Mass on in on in PM ratio] in source source Serum or data data Plasma Albumin 3.4 - 5.0 gm/dL Normal No January 20 [Mass/vol informati 2017 1:02 ume] in on in PM Serum or source Plasma data Alkaline 46 - 116 U/L Normal No January 20 phosphata informati 2016 1:02 se on in PM [Enzymati source c data activity/ volume] in Serum or Plasma Bilirubin 0.2 - 1.0 mg/dL Normal No January 20 .total informati 2016 1:02 [Mass/vol on in PM ume] in source Serum or data Plasma Urea 7 - 18 mg/dL Normal No January 20 nitrogen informati 2016 1:02 [Mass/vol on in PM ume] in source Serum or data Plasma Calcium 8.5 - mg/dL Normal No January 20 [Mass/vol 10.1 informati 2016 1:02 ume] in on in PM Serum or source Plasma data Chloride 98 - 107 mmoL/L Normal No January 20 [Moles/vo informati 2016 1:02 lume] in on in PM Serum or source Plasma data Carbon 21.0 - mmoL/L Normal No January 20 dioxide, 32.0 informati 2016 1:02 total on in PM [Moles/vo source lume] in data Serum or Plasma Creatinin 0.55 - mg/dL Normal No January 20 e 1.02 informati 2016 1:02 [Mass/vol on in PM ume] in source Serum or data Plasma Estimated 59- ML/MIN No REFERENCE January 20 informati RANGE: 2017 1:02 glomerula on in >60 PM r source ML/MIN/1. filtratio data 73 SQUARE n rate METERSIf (GF this patient is -A merican, then multiply theresult by 1.210. Globulin 1.3 - 3.2 gm/dL High No January 20 [Mass/vol informati 2016 1:02 ume] in on in PM Serum source data Glucose 74 - 106 mg/dL Normal No January 20 [Mass/vol informati 2016 1:02 ume] in on in PM Serum or source Plasma data Potassium 3.5 - 5.1 mmoL/L Normal No January 20 informati 2016 1:02 [Moles/vo on in PM lume] in source Serum or data Plasma Sodium 136 - 145 mmoL/L Normal No January 20 [Moles/vo informati 2016 1:02 lume] in on in PM Serum or source Plasma data Aspartate 15 - 37 U/L Normal No January 20 informati 2016 1:02 aminotran on in PM sferase source [Enzymati data c activity/ volume] in Serum or Plasma Alanine 12 - 78 U/L Normal No January 20 aminotran informati 2016 1:02 sferase on in PM [Enzymati source c data activity/ volume] in Serum or Plasma Protein 6.4 - 8.2 gm/dL Normal No January 20 [Mass/vol informati 2016 1:02 ume] in on in PM Serum or source Plasma data Ferritin [Mass/volume] in Serum or Plasma Observa Value Referen Units Interpr Notes Date tion ce etation Range Ferritin 8 - 388 ng/mL Normal No January 20 [Mass/vol informati 2016 1:02 ume] in on in PM Serum or source Plasma data Thyrotropin [Units/volume] in Serum or Plasma Observa Value Referen Units Interpr Notes Date tion ce etation Range Thyrotrop 0.358 - uIU/ml Normal No January 20 in 3.740 inform2016 1:02 [Units/vo on in PM lume] in source Serum or data Plasma CBC W Auto Differential panel in Blood Observa Value Referen Units Interpr Notes Date ti ce etation Range Basophils 0 - 0.2 K/MM3 Normal No January 202016 1:02 [#/volume on in PM ] in source Blood by data Automated count Basophils 0.1 - 2.0 % Normal No January 20 / informati 2016 1:02 leukocyte on in PM s in source Blood by data Automated count Eosinophi 0.0 - 0.4 K/mm3 Normal No January 20 ls 2016 1:02 [#/volume on in PM ] in source Blood by data Automated count Eosinophi 0.1 - % Normal No January 20 ls/100 12.0 informati 2016 1:02 leukocyte on in PM s in source Blood by data Automated count Granulocy 1.8 - 7.8 K/mm3 Normal No January 20 zamzam informati 2016 1:02 [#/volume on in PM ] in source Blood by data Automated count Granulocy 37.0 - % Normal No January 20 zamzam/100 80.0 informati 2016 1:02 leukocyte on in PM s in source Blood by data Automated count Hematocri 37.0 - % Normal No January 20 t [Volume 47.0 informati 2016 1:02 on in PM Fraction] source of Blood data Hemoglobi 12.2 - g/dL No January 20 n 16.2 informati informati 2016 1:02 [Mass/vol on in on in PM ume] in source source Blood data data Lymphocyt 0.7 - 4.5 K/mm3 Normal No January 20 es informati 2016 1:02 [#/volume on in PM ] in source Unspecifi data ed specimen by Automated count Lymphocyt 10 - 50.0 % Normal No January 20 es informati 2016 1:02 [#/volume on in PM ] in source Unspecifi data ed specimen by Automated count Erythrocy 27 - 31.2 pg Normal No January 20 te mean informati 2016 1:02 corpuscul on in PM ar source hemoglobi data n [Entitic mass] Erythrocy 31.8 - g/dl Normal No January 20 te mean 35.4 informati 2016 1:02 corpuscul on in PM ar source hemoglobi data n concentra tion [Mass/vol ume] by Automated count Erythrocy 82.2 - fl Normal No January 20 te mean 97.8 informati 2016 1:02 corpuscul on in PM ar volume source [Entitic data volume] by Automated count Monocytes 0.1 - 1.0 K/mm3 Normal No January 20 informati 2016 1:02 [#/volume on in PM ] in source Blood by data Automated count Monocytes 1.7 - 9.3 % Normal No January 20 /100 informati 2016 1:02 leukocyte on in PM s in source Blood by data Automated count Platelet 7.4 - fl Low No January 20 mean 10.4 informati 2016 1:02 volume on in PM [Entitic source volume] data in Blood by Automated count Platelets 142 - 424 K/mm3 Normal No January 20 informati 2016 1:02 [#/volume on in PM ] in source Blood data Erythrocy 4.2 - 5.4 M/mm3 Normal No January 20 zamzam informati 2016 1:02 [#/volume on in PM ] in source Amniotic data fluid Erythrocy 11.5 - % Normal No January 20 te 17.5 informati 2016 1:02 distribut on in PM ion width source [Entitic data volume] by Automated count Leukocyte 4.8 - K/MM3 Normal No January 20 s 10.8 informati 2016 1:02 [#/volume on in PM ] in source Blood data
--- OUTSIDE RECORDS SUMMARY | 2017-06-17 23:40 | External Medical Summary Rpt ---
[...] - [facility] PM in Serum or Plasma [address] [id number] Sql Report Developer: Robi Tapia PhD, Phone: [phone] Natriutietic peptide B [Mass/volume] in Serum [...]
== END 2017-06-12 22:56 | disposition home or self-care (01) ==
LOC: ER 22:12
PROC: 2W3KX1Z Immobilization of Left Finger using Splint (ICD-10-PCS; principal; 2017-06-12)
DX: S63.657A Sprain of metacarpophalangeal joint of left little finger, initial encounter (principal); D64.9 Anemia, unspecified; F17.210 Nicotine dependence, cigarettes, uncomplicated; X50.1XXA Overexertion from prolonged static or awkward postures, initial encounter; Y92.89 Other specified places as the place of occurrence of the external cause

== ENCOUNTER → 2017-06-15 | Outpatient (CLI) | payer MEDICAID ==
[2017-06-21 03:36] LABS: Neisseria gonorrhoeae, NAA Negative (Negative)
== END ==
LOC: LAB 17:16
PROVIDERS: Nurse Practitioner Obstetrics & Gynecology
DX: Z72.51 High risk heterosexual behavior (principal)